=== PATIENT | female | born 1980 | race Two or more races ===

== ENCOUNTER 2022-06-29 06:21 | Emergency (ER) | payer OTHER ==
[~2022-06-29] VITALS: Ht 165.1 cm; Wt 90.7 kg
--- NOTE | 2022-06-29 06:50 | NUR ---
PORFIRIO JARRELL [phone], HAS PTS MEDICAL HISTORY. EXTREME ANXIETY NORMALLY LATEX/STEROID ALLERGY
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
[2022-06-29] MEDS ORDERED: MORPHINE SULFATE INJ 2 MG/ML DISP.SYRIN IV ONE ×2 (07:00→09:30)
[2022-06-29] MEDS ORDERED: MORPHINE SULFATE INJ 4 MG/ML DISP.SYRIN ONE ×3 (07:14→13:49)
--- NOTE | 2022-06-29 07:27 | NUR ---
IV CANNULA G20 INSERTED ON RIGHT AC.
--- NOTE | 2022-06-29 08:10 | NUR ---
TO RADIOLOGY FOR CT
--- NOTE | 2022-06-29 10:24 | NUR ---
TEXTED DR. QUINONEZ FOR MRI APPROVAL.
--- NOTE | 2022-06-29 10:29 | NUR ---
MRI APPROVED, SALES MARKETING MANAGER NOTIFIED
[2022-06-29] MEDS ORDERED: KETOROLAC TROMETHAMINE INJ 30 MG/ML VIAL IV ONE (10:30)
[2022-06-29] MEDS ORDERED: KETOROLAC TROMETHAMINE 15 MG/ML VIAL ONE (10:40)
--- NOTE | 2022-06-29 12:03 | NUR ---
wheeled patient via gurney to MRI.
--- NOTE | 2022-06-29 13:10 | NUR ---
patient came back from MRI.
[2022-06-29] MEDS ORDERED: HYDR-4209 PO (14:03)
[2022-06-29] MEDS ORDERED: KETO10TA2 PO (14:03)
[2022-06-29 14:14] VITALS: BP 118/66
--- NOTE | 2022-06-29 14:15 | NUR ---
Patient discharged to home in stable condition. Written and verbal after care instructions given. Patient verbalizes understanding of instruction.IV removed. Catheter intact and site benign. Pressure and 4x4 applied to site. No bleeding noted.
== END 2022-06-29 14:14 | disposition home or self-care (01) ==
LOC: ER 06:23
DX: M25.512 Pain in left shoulder (principal); M25.551 Pain in right hip; M25.511 Pain in right shoulder; R20.2 Paresthesia of skin; M54.2 Cervicalgia; M25.522 Pain in left elbow; M25.532 Pain in left wrist; V89.2XXA Person injured in unspecified motor-vehicle accident, traffic, initial encounter; Y92.411 Interstate highway as the place of occurrence of the external cause; J45.909 Unspecified asthma, uncomplicated; Z91.041 Radiographic dye allergy status; Z91.040 Latex allergy status; M50.922 Unspecified cervical disc disorder at C5-C6 level
CPT/HCPCS: 72148; 99285; 72125; 96374; 96375; 87426; 96376; 73080; 73502; 73030; 70450; 72131; 72141; 73110; J2270 ×2; J1885; C9803